=== PATIENT | female | born 1940 | race Caucasian/White ===

== ENCOUNTER 2025-03-23 17:30 | Emergency (ER) | payer MEDICARE, SELFPAY ==
[2025-03-23 17:32] VITALS: BP 165/83
[2025-03-23] MEDS: TYLENOL #3 1 TABLET PO (19:00)
--- NOTE | 2025-03-23 23:04 | ED.MUSCINJ ---
HPI-Injury
General
Chief Complaint: Musculo-Skeletal Complaint
Source: patient
Exam Limitations: none
Time Seen by Provider: 03/23/25 18:26
Nursing documentation reviewed up to this point in time: agreed with
History of Present Illness-Injury
Is this injury a work related problem?: No
Is pt an associate of [facility]/[place]?: No
Initial Injury comments:
Patient to ED after trip and fall just [employer]. She denies hitting her head. No LOC. COmplains of pain to her right wrist. To ED accompanied by friend.
Past History
Past History
ED Past Medical History: None
Review of Systems
Review of Systems
Allergies reviewed?: Yes
All Other Systems: ROS reviewed and negative except as documented in HPI and ROS
Constitutional: Reports no symptoms
EENT: Reports no symptoms
Respiratory: Reports no symptoms
Cardiac: Reports no symptoms
ABD/GI: Reports no symptoms
: Reports no symptoms
Musculoskeletal: Reports joint pain (pain to right wrist)
Skin: Reports no symptoms
Neurological: Reports no symptoms
Psychiatric: Reports no symptoms
Musculoskeletal Injury Exam
Musculoskeletal Injury Exam
Right Wrist:
Pain with Movement?: Moderate
Tender to palpation?: Moderate
Soft tissue swelling?: Moderate
External deformity and angulation?: Mild
Joint effusion?: None
Contusion?: None
Hematoma-local bleeding into tissue?: Moderate
Strain- Sprain- Tear (Connective tissue injury)?: Moderate
Crepitus with movement?: No
Joint instability?: No
Range of motion: Limited
Distal skin color and temperature: normal-warm & good color
Capillary Refill: normal
Normal distal neurovascular exam?: Yes
Peripheral Pulses: radial (right): 3+
Phy Exam
General Physical Exam
General Presentation: mild distress
General age: appears stated age
General Skin: warm and dry
General Habitus: normal
General Mental: alert
Musculoskeletal Exam
Musculoskeletal Exam: neuro vasc intact
Skin Exam
Skin Exam: normal color, warm/dry and no rash
Psychiatric Exam
Psychiatric Exam: normal mood/affect
Injury Course
Orders/Labs/Results
Orders:
Orders
03/23/25 17:34
Wrist, Right 3 Views [CR Wrist - Right Min 3 Views] Urgent
Comment:
Reason For Exam: fall
03/23/25 18:32
Sling Right-Treatment ONCE
[place] Right-Treatment ONCE
03/23/25 18:52
Acetaminophen with Codeine [Tylenol #3] 1 tablet PO NOW STA
*Radiology
Radiology exam reviewed: radiology read reviewed
*Pulse Oximetry
SaO2: 96
Oxygen Mode of Delivery: Room air
Patient hypoxic: no
*Critical Care Note
Total Time (30-74mins, 75-104mins- exclusive of procedures): Not Applicable
Update Note
Update Note:
Patient to ED s/p trip and fall. No head injury. Pain to right wrist. Xray and report reviewed. Discussed findings iwth patient and friend. RUE neurologically intact. NO wounds. Will place in [place] splint and sling. SHe will continue to ice
and elevate at home, followup [facility] ortho next week.Dsc of her films were provided for her as she is not sure who she will follow with . Given number for false pass ortho here. Given rx for short course of pain medications. Discharged home with
friend.
ED Attending Note
-
Portions of this chart may have been created with voice recognition software.� Occasional wrong word or��sound alike� substitutions may have occurred due to the inherent limitations of voice recognition software.
Discharge Plan
Departure
Patient Disposition: Home (Routine Discharge)
Date of Disposition: 03/23/25
Time of Disposition: 18:33
Patient with high blood pressure during this ER visit?: No
Condition: Good
Covid-19: Not Applicable
Discharge Problem:
Fracture of wrist
Instructions: Wrist Fracture (DC), Ibuprofen, How to Use a Shoulder Sling, Using Cold for Pain, Splint Care
Prescriptions:
New
acetaminophen-codeine 300-30 mg tablet
1 tab PO Q4H PRN (Reason: Pain) Qty: 12 0RF
Referrals:
Tunde Bernal MD [Active, Orthopedics] - Call in 1-3 days for appt
Interventions
Interventions:
*Risk Screen - Suicide Last Done: 03/23/25 19:02
*General Assessment Last Done: 03/23/25 19:02
*Neglect/Abuse Screening Last Done: 03/23/25 19:02
*ED- Fall Risk Assessment Last Done: 03/23/25 19:02
*ED COVID-19 Vaccine History Last Done: 03/23/25 19:02
*Nursing Disposition Last Done: 03/23/25 19:24
ED-Musculoskeletal Assessment Last Done: 03/23/25 19:02
Discharge Date and Time
Discharge Date/Time: 03/23/25 19:26
Print Language: BAHRAINI
== END 2025-03-23 19:26 | disposition home or self-care (01) ==
LOC: EMR 17:30
PROVIDERS: EMERGENCY PHYSICIAN Emergency Medicine; FAMILY PHYSICIAN Family Medicine
DX: S52.591A Other fractures of lower end of right radius, initial encounter for closed fracture (principal); S52.614A Nondisplaced fracture of right ulna styloid process, initial encounter for closed fracture; W01.0XXA Fall on same level from slipping, tripping and stumbling without subsequent striking against object, initial encounter
CPT/HCPCS: 29125; 99283; 73110